=== PATIENT | female | born 1985 | race Caucasian/White ===

== ENCOUNTER → 2021-01-23 | Outpatient (CLI) | payer BC, OTHER ==
[~2021-01-23] MED LIST: ALBU8.5H8 INH; CYAN50003 PO; D-MA50PO PO; FLUT1DIS3 INH; FLUT9.9S NAS; GOLI APPLE CIDER PO; Immune Support PO; LACT1CAP35 PO; LYSI500T8 PO; MARSHMALLOW ROOT PO; TURM538C PO; Vitamin c PO
[2021-01-23 12:19] LABS: BASOPHILS % (AUTO) 0 % (0-1); EOSINOPHILS % (AUTO) 4 % (1-7); LYMPHOCYTES % (AUTO) 31 % (22-44); MEAN CORPUSCULAR HEMOGLOBIN 31.2 pg (27.0-34.8); MEAN CORPUSCULAR HGB CONC 33.3 g/dL (32.4-35.8); MEAN PLATELET VOLUME 8.3 fL (7.4-10.4); MONOCYTES % (AUTO) 6 % (2-9); NEUTROPHILS % (AUTO) 59 % (42-75); PLATELET COUNT 256 x10^3/uL (130-400); RED BLOOD COUNT 4.61 x10^6/uL (3.82-5.3); RED CELL DISTRIBUTION WIDTH 12.8 % (9.6-15.2)
[2021-01-23 12:20] LABS: MD NO
== END | disposition home or self-care (01) ==
LOC: STAR 11:05
PROVIDERS: ATTEND Obstetrics & Gynecology
DX: Z01.812 Encounter for preprocedural laboratory examination (principal); N93.8 Other specified abnormal uterine and vaginal bleeding; N84.0 Polyp of corpus uteri; Z20.822 Contact with and (suspected) exposure to COVID-19
CPT/HCPCS: 36415; 84702; 85025; U0003; U0005

== ENCOUNTER 2021-01-29 13:38 | Day surgery (SDC) | payer BC, OTHER ==
[~2021-01-29] VITALS: Ht 170.2 cm; Wt 101.0 kg
[2021-01-29 14:23] VITALS: BP 124/79
[2021-01-29] MEDS ORDERED: LACTATED RINGERS 1,000 ML IV SCH (14:30)
[2021-01-29] MEDS ORDERED: CHLORHEXIDINE 15 ML UDC PO ONE (14:30)
[2021-01-29 14:33] LABS: HCG UR SG 1.014 (1.003-1.030)
[2021-01-29] MEDS ORDERED: SILVER NITRATE STICK TP ONE (14:58)
[2021-01-29] MEDS ORDERED: LIDOCAINE 1%, 20ML ONE (14:58)
[2021-01-29] MEDS ORDERED: PROPOFOL 50 ML ONE (15:10)
[2021-01-29] MEDS ORDERED: FENTANYL PF 250 MCG/5ML ONE (15:10)
[2021-01-29] MEDS ORDERED: MIDAZOLAM 1 MG/ML, 2ML ONE (15:10)
[2021-01-29] MEDS ORDERED: ONDANSETRON 2MG/ML, 2ML IVPush PRN (15:30)
[2021-01-29] MEDS ORDERED: MEPERIDINE/PF 25MG/0.5ML IVPush PRN (15:30)
[2021-01-29] MEDS ORDERED: EPHEDRINE 50 MG/ML, 1ML IM PRN (15:30)
[2021-01-29] MEDS ORDERED: hydrALAzine 20 MG/ML, 1ML IV PRN (15:30)
[2021-01-29] MEDS ORDERED: OXYcodone 5 MG/5 ML ORAL.SOL UDC PO PRN (15:30)
[2021-01-29] MEDS ORDERED: ACETAMINOPHEN 325 MG TABLET PO PRN (15:30)
[2021-01-29] MEDS ORDERED: EPHEDRINE 50 MG/ML, 1ML IVPush PRN (15:30)
[2021-01-29] MEDS ORDERED: DIAZEPAM 5 MG/ML, 2ML IVPush PRN (15:30)
[2021-01-29] MEDS ORDERED: DIPHENHYDRAMINE 50 MG/ML, 1ML IVPush PRN (15:30)
[2021-01-29] MEDS ORDERED: PROMETHAZINE 25 MG/ML, 1ML IVPush PRN (15:30)
[2021-01-29] MEDS ORDERED: HYDROmorphone 1 MG/ML, 1ML INJ IVPush PRN (15:30)
[2021-01-29] MEDS ORDERED: LABETALOL 5MG/ML, 20ML IV PRN (15:30)
[2021-01-29] MEDS ORDERED: FENTANYL PF 100 MCG/2ML IV PRN (15:30)
[2021-01-29] MEDS ORDERED: DEXAMETHASONE 4 MG/ML, 1ML ONE (16:09)
[2021-01-29] MEDS ORDERED: KETOROLAC 30 MG/1 ML ONE (16:10)
[2021-01-29] MEDS ORDERED: PROPOFOL 10 MG/ML, 20ML ONE (16:10)
[2021-01-29] MEDS ORDERED: ONDANSETRON 2MG/ML, 2ML ONE (16:10)
== END 2021-01-29 17:50 | disposition home or self-care (01) ==
LOC: OR 13:38
PROVIDERS: ATTEND Obstetrics & Gynecology
DX: N84.0 Polyp of corpus uteri (principal); N92.6 Irregular menstruation, unspecified; J45.909 Unspecified asthma, uncomplicated; Z79.899 Other long term (current) drug therapy; Z88.2 Allergy status to sulfonamides; Z83.42 Family history of familial hypercholesterolemia
CPT/HCPCS: 36415; 58558; 81025; 86850; 86900; 88305; J1100; J1885; J2250; J2405; J2704; J3010